=== PATIENT | male | born 1950 | race Caucasian/White ===

== ENCOUNTER 2018-11-24 13:14 | Emergency (ER) | payer MEDICARE ==
[~2018-11-24] VITALS: Ht 172.7 cm; Wt 102.5 kg
[2018-11-24] MEDS ORDERED: ECOT81TA5 PO (13:27)
[2018-11-24] MEDS ORDERED: NOVOINJ3 SC (13:27)
[2018-11-24] MEDS ORDERED: METF-839 PO (13:27)
[2018-11-24] MEDS ORDERED: LEVO150T7 PO (13:27)
[2018-11-24] MEDS ORDERED: OZEM2INJ2 SC (13:27)
[2018-11-24] MEDS ORDERED: NS 1,000 ML IV ONE (13:45)
[2018-11-24 14:09] LABS: APPEARANCE, URINE HAZY (CLEAR); BACTERIA, URINE AUTO NEGATIVE (NEGATIVE); BILIRUBIN, URINE AUTO NEGATIVE (NEGATIVE); BLOOD, URINE BLOOD NEGATIVE (NEGATIVE); COLOR, URINE YELLOW (YELLOW); GLUCOSE, URINE (UA) AUTO NEGATIVE (NEGATIVE); KETONE, URINE AUTO NEGATIVE (NEGATIVE); LEUKOCYTE ESTERASE, URINE AUTO NEGATIVE (NEGATIVE); MUCUS, URINE SMALL (NEGATIVE); NITRITE, URINE AUTO NEGATIVE (NEGATIVE); PROTEIN, URINE AUTO NEGATIVE (NEGATIVE); RBC, URINE AUTO 1 /HPF (0-3); SPECIFIC GRAVITY URINE AUTO 1.024 (1.002-1.035); SQUAMOUS EPITHELIAL CELL UR AU 0 /HPF (0-6); UROBILINOGEN, URINE AUTO 0.2 mg/dL (0.0-2.0); WBC, URINE AUTO 0 /HPF (0-3)
[2018-11-24 14:14] LABS: BASO % 0.1 % (0.0-1.0); EOS # 0.2 10^3/uL (0.0-0.50); EOS % 2.7 % (0.0-3.0); HEMATOCRIT 42.8 % (42.0-52.0); HEMOGLOBIN 14.8 g/dl (13.5-17.5); LYMPH # 1.8 10^3/uL (1.5-4.5); LYMPH % 24.6 % (24.0-44.0); MEAN CORPUSCULAR HEMOGLOBIN 31.4 pg (27.0-33.0); MEAN CORPUSCULAR HGB CONC 34.6 g/dl (32.0-36.5); MEAN CORPUSCULAR VOLUME 90.7 fl (80.0-96.0); MONO # 0.8 10^3/uL (0.0-0.8); MONO % 10.8 % (0.0-5.0); NEUTROPHILS # 4.5 10^3/uL (1.8-7.7); NEUTROPHILS % 61.1 % (36.0-66.0); PLATELET COUNT, AUTOMATED 160 10^3/uL (150-450); RED BLOOD COUNT 4.72 10^6/uL (4.30-6.10); WHITE BLOOD COUNT 7.3 10^3/uL (4.0-10.0)
[2018-11-24 14:31] LABS: ALBUMIN 3.7 GM/DL (3.2-5.2); ALT/SGPT 59 U/L (12-78); BILIRUBIN,DIRECT 0.3 MG/DL (0.0-0.2); BILIRUBIN,TOTAL 1.6 MG/DL (0.2-1.0); BLOOD UREA NITROGEN 18 MG/DL (7-18); CALCIUM LEVEL 8.8 MG/DL (8.8-10.2); CARBON DIOXIDE LEVEL 29 MEQ/L (21-32); CHLORIDE LEVEL 107 MEQ/L (98-107); CREATININE FOR GFR 0.98 MG/DL (0.70-1.30); GLOMERULAR FILTRATION RATE > 60.0 (>49); GLUCOSE, FASTING 112 MG/DL (70-100); LIPASE 200 U/L (73-393); POTASSIUM SERUM 4.2 MEQ/L (3.5-5.1); SODIUM LEVEL 140 MEQ/L (136-145)
[2018-11-24 15:17] VITALS: BP 140/81
--- NOTE | 2018-11-24 16:19 | REP ---
Abdominal right upper quadrant ultrasound for right upper quadrant abdominal pain: There are gallbladder calculi. There is no pericholecystic fluid or gallbladder wall thickening. There is no intrahepatic or extrahepatic biliary duct dilatation. The common biliary duct measures 6.2 mm in diameter. The hepatic parenchyma is hyperechoic compatible with hepato steatosis. There are several hepatic cysts. The largest right lobe cyst measures 2.1 cm and the largest left lobe cyst measures 2.0 cm. The right kidney is normal size measuring 11.5 x 5.8 x 5.5 cm. There is no right renal hydronephrosis, calculus, cyst or solid mass. There is no right upper quadrant ascites. Impression: Cholelithiasis without ultrasound evidence of cholecystitis. Heterogeneous hepatic parenchyma compatible with hepato steatosis steatosis. There are several hepatic cysts. Electronically Signed by Enrique Valenzuela MD 11/24/2018 04:10 P
== END 2018-11-24 17:11 | disposition home or self-care (01) ==
LOC: M ED 13:14
DX: K80.20 Calculus of gallbladder without cholecystitis without obstruction (principal); K74.60 Unspecified cirrhosis of liver; K76.89 Other specified diseases of liver; E11.9 Type 2 diabetes mellitus without complications; E03.9 Hypothyroidism, unspecified; Z87.19 Personal history of other diseases of the digestive system; Z88.8 Allergy status to other drugs, medicaments and biological substances; Z79.899 Other long term (current) drug therapy; Z79.82 Long term (current) use of aspirin; Z79.4 Long term (current) use of insulin